=== PATIENT | male | born 1960 | race Caucasian/White ===

== ENCOUNTER 2019-02-27 21:08 | Emergency (ER) | payer OTHER ==
[~2019-02-27] VITALS: Ht 188 cm; Wt 117.9 kg
[~2019-02-27 21:08] MED LIST: CARISOPRODOL 3350 MG PO; NOHOMEMEDICATIONS; VICODIN 5-5001 EACH PO
[2019-02-27 21:29] LABS: ABSOLUTE BASOPHILS 0.1 thou/uL (0.0-0.2); ABSOLUTE LYMPHOCYTES 1.7 thou/uL (0.8-5.3); ABSOLUTE MONOCYTES 0.9 thou/uL (0.0-1.2); ABSOLUTE NEUTROPHILS 6.6 thou/uL (1.6-8.1); BASOPHILS 0.6 %; EOSINOPHILS 0.5 %; HEMATOCRIT 40.4 % (42.0-52.0); LYMPHOCYTES 18.4 %; MCH 31.2 pg (26.0-34.0); MCHC 34.7 g/dL (28.0-37.0); MCV 90.1 fL (80.0-100.0); MONOCYTES 9.5 %; MPV 7.9 fl. (7.2-11.1); NUCLEATED RBCS 0 /100WBC; PLATELET COUNT* 206 thou/uL (150-400); RBC 4.49 mil/uL (4.50-6.00); RDW-CV 13.6 % (10.5-14.5); WBC 9.3 thou/uL (4.0-11.0)
[2019-02-27] MEDS ORDERED: COZAAR 25 MG TA25 M2 PO (21:30)
[2019-02-27] MEDS ORDERED: LIPITOR10 MG PO (21:30)
[2019-02-27] MEDS ORDERED: JANUMET 50-1,01 EACH PO (21:31)
[2019-02-27] MEDS ORDERED: VITAMIN D2000 UNIT PO (21:32)
[2019-02-27] MEDS ORDERED: NORVASC10 MG PO (21:34)
[2019-02-27] MEDS ORDERED: ASPIR 8181 MG PO (21:34)
[2019-02-27 21:43] LABS: CALCIUM 9.9 mg/dL (8.5-10.1); CREATININE 1.5 mg/dL (0.6-1.3); POTASSIUM 3.8 mmol/L (3.5-5.1)
[2019-02-27 21:50] LABS: ALBUMIN 4.4 g/dL (3.4-5.0); TOTAL BILIRUBIN 0.6 mg/dL (<0.1-1.0); TOTAL PROTEIN 8.1 g/dL (6.4-8.2)
[2019-02-27 23:05] LABS: URINE BILIRUBIN NEGATIVE (Negative); URINE BLOOD NEGATIVE (Negative); URINE CLARITY CLEAR; URINE COLOR YELLOW; URINE GLUCOSE-RANDOM NEGATIVE (Negative); URINE KETONES 1+ (Negative); URINE LEUKOCYTES-REFLEX NEGATIVE (Negative); URINE NITRITE-REFLEX NEGATIVE (Negative); URINE PROTEIN NEGATIVE (Negative); URINE UROBILINOGEN 0.2 E.U./dl (0.2-1.0)
[2019-02-28] MEDS ORDERED: ZOFRAN ODT4 MG PO (00:30)
[2019-02-28] MEDS ORDERED: TORADOL 10 MG T10 MG PO (00:30)
[2019-02-28] MEDS ORDERED: CIPROFLOXACIN500 M1 PO (00:31)
[2019-02-28 00:40] VITALS: BP 112/60
== END 2019-02-28 00:41 | disposition home or self-care (01) ==
LOC: M.ERS 21:08
PROVIDERS: Personal Emergency Response Attendant
DX: N23 Unspecified renal colic (principal); I10 Essential (primary) hypertension; Z87.442 Personal history of urinary calculi